=== PATIENT | male | born 1970 | race Two or more races ===

== ENCOUNTER 2025-01-16 17:35 | Emergency (ER) | payer SELFPAY ==
--- NOTE | ~2025-01-16 | XR_ITS ---
CLINICAL HISTORY: pain 3 view left knee Comparison: None provided Findings: There are mild arthritic changes of the knee. No joint effusion. There are innumerable metallic foreign bodies within the thigh with involvement of the femur and soft tissues. There are 2 punctate foreign bodies within the anterior knee and there is a solitary metallic foreign body within the posterior soft tissues of the calf. 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 There is no acute fracture. There is no active bony destruction or evidence of periostitis. IMPRESSION: 1. Numerous metallic foreign bodies as described. Chronic associated deformity of the femur. 2. Two tiny metallic foreign bodies within the knee. 3. No acute bony abnormality. This document has been electronically signed by: Joselin Winkler MD on 01/16/2025 18:44:04
[2025-01-16 17:51] VITALS: BP 135/78; PULSE 95; RESP 18; TEMP 36.3; O2SAT 98; BMI 33.2
--- NOTE | 2025-01-16 17:54 | ED.LOWEXIN ---
HPI - Extremity Injury (Lower) General Chief Complaint: Extremity Problem Stated Complaint: Lt knee pain Time Seen by Provider: 01/16/25 19:46 History of Present Illness ED Provider: petros HPI Narrative: 54-year-old male with knee pain. The patient has chronic left knee pain from arthritis, previous meniscal and ligamentous tear with repair remotely. He also had a left thigh shock on wound remotely and has retained metallic fragments that he is aware of. Related Data Allergies Allergy/AdvReac Type Severity Reaction Status Date / Time No Known Allergies Allergy Verified 01/16/25 17:57 [facility] Social History Social History Advance Directives: No Advance Directives Information Provided: No Physical Exam Vital Signs: Vital Signs: Last Vital Signs Temp 97.3 F 01/16/25 17:51 Pulse 95 01/16/25 17:51 Resp 18 01/16/25 17:51 BP 135/78 01/16/25 17:51 Pulse Ox 98 01/16/25 17:51 O2 Del Method Room Air 01/16/25 17:51 BMI result Body Mass Index 33.2 Const: Other: GENERAL: Well appearing. No apparent distress. Alert. HEAD/NECK: No visual trauma. EYES: Normal to inspection. No conjunctival erythema. No discharge. ENMT: Hearing grossly normal. External nose normal. RESPIRATORY: Respiratory effort normal. CARDIOVASCULAR: Additional details (Grossly well perfused). SKIN: No jaundice. NEUROLOGICAL: Alert. Moving all extremities x4. Additional details (No gross motor deficits. Normal tone. ). PSYCHIATRIC: Alert. Appearance appropriate for situation. MSK: Left lower extremity with multiple scars and palpable metallic foreign bodies. Left knee lower anterior vertical scar. No palpable effusion. Grossly stable with valgus and varus stress. No popliteal mass or tenderness. Full range of motion with flexion and extension. Course Course Course Narrative: This is an RME: Additional HPI, ROS, PE not included below will be deferred to primary provider. RME assessment and note performed by: Christin Shoemaker PA-C This is a [id number]-male who presents to the ER with concerns for acute on chronic left knee pain for the last several weeks. Received an injection in (?Betaduo) 3 weeks ago - states type of steroid injection. Has been walking more and having more pain. Had laproscopic left knee June 09, [address] [place] knee with no overlying erythema or warmth. Pt is ambulatory with steady gait. Plan: Xray left knee Medical Decision Making Medical Decision Making MDM Narrative: Medical Decision Makin-year-old male with chronic left knee pain prior internal derangement and surgeries. Pain after walking for hours in [place] he says. There was no signs of effusion. X-rays without fracture. No clinical symptomatology to suggest acute infectious arthritis or DVT. Preliminary Favored Differential Diagnosis: Internal derangement of the knee, chronic arthritis, meniscal injury, among additional considered etiologies Testing Interpreted Independently: Not Applicable Radiology or Lab testing Results Reviewed: No acute bony abnormality of the left knee Consults: Not Applicable Independent Historians/External Chart Reviews: Not Applicable Social Determinants of Health Impacting MDM/Planning: Not Applicable Discharge Plan Discharge Clinical Impression: Acute knee pain Patient Disposition: Home, Self-Care Instructions: Arthralgia (ED) Additional Instructions: DISCHARGE DIAGNOSES: Left knee pain acute on chronic HISTORY OF PRESENTATION: ?Left knee pain after walking several hours of the knee EMERGENCY DEPARTMENT COURSE,TESTS, TREATMENTS: While in the ED today you had an x-ray that showed no acute bony abnormalities or fracture of the left knee You received intramuscular medication for inflammation: 10 mg of dexamethasone, 30 mg of ketorolac DISCHARGE MEDICATIONS: ?[We have made no changes to your regular medication regimen] FOLLOW-UP: ?Call your primary or general physician soon as possible to discuss your symptoms, your ED visit and to discuss follow up plans If he would like you can try to follow up with our orthopedic service here to discuss other options INSTRUCTIONS ?& RETURN PRECAUTIONS: If any symptoms change first call your primary physician, if it is after-hours your primary doctors office should have a provider stone driller you can speak with. If the symptoms are severe or very concerning to you then call 911 or return to the ED. [07] Jerome Chino MD Emergency Physician [facility] Referrals: [facility] [place] Orthopedic Surgeons [Provider Group, Orthopedics] Print Language: Syriac
[2025-01-16 20:37] VITALS: BP 135/78; PULSE 95; RESP 18; TEMP 36.3; O2SAT 98
== END 2025-01-16 20:38 | disposition home or self-care (01) ==
PROVIDERS: Emergency Provider Emergency Medicine
DX: M25.562 Pain in left knee (principal)
CPT/HCPCS: 73564; 96372; 99283; 99284; J1100; J1885

== ENCOUNTER → 2025-01-16 18:00 | Outpatient (BNV) | payer SELFPAY | PROVIDERS: Visit Provider Radiology Diagnostic Radiology | DX: M79.5 Residual foreign body in soft tissue (principal) | CPT/HCPCS: 73564 ==